=== PATIENT | male | born 2005 | race Caucasian/White ===

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

== ENCOUNTER 2024-05-25 20:24 | Emergency (ER) | payer MEDICAID, OTHER, SELFPAY ==
[~2024-05-25] VITALS: Ht 170.2 cm; Wt 63.8 kg
[2024-05-25 20:27] VITALS: BP 137/81; TEMP 97.8; O2SAT 98
== END 2024-05-25 22:00 | disposition left against medical advice (07) ==
LOC: M ED 20:24
DX: Z53.21 Procedure and treatment not carried out due to patient leaving prior to being seen by health care provider (principal)